=== PATIENT | male | born 2000 | race Caucasian/White ===

== ENCOUNTER 2024-01-03 20:07 | Emergency (ER) | payer OTHER ==
[~2024-01-03] VITALS: Ht 177.8 cm; Wt 90.0 kg
[2024-01-03 20:29] VITALS: O2SAT 99
[2024-01-03] MEDS: HYDROCODONE/ACETAMINOPHEN 5/325MG TABLET PO ONE (21:54)
[2024-01-03] MEDS ORDERED: NAPR-1176 MT (22:00)
[2024-01-03 22:12] VITALS: BP 112/77; PULSE 88; RESP 16; TEMP 98.5
== END 2024-01-03 22:13 | disposition home or self-care (01) ==
LOC: ER 20:07
DX: S06.0X0A Concussion without loss of consciousness, initial encounter (principal); S00.83XA Contusion of other part of head, initial encounter; W18.39XA Other fall on same level, initial encounter; Y93.89 Activity, other specified; Y92.89 Other specified places as the place of occurrence of the external cause; Y99.8 Other external cause status
CPT/HCPCS: 73130; 99284

== ENCOUNTER 2024-05-08 09:10 | Emergency (ER) | payer OTHER ==
[~2024-05-08] VITALS: Ht 180.3 cm; Wt 80.0 kg
[~2024-05-08 09:10] MED LIST: NAPR-1176 MT
[2024-05-08 09:19] VITALS: O2SAT 98
[2024-05-08] MEDS: ACETAMINOPHEN 325MG TABLET PO NR (10:52)
[2024-05-08 13:18] VITALS: BP 128/73; PULSE 99; RESP 20; TEMP 97.9
== END 2024-05-08 13:28 | disposition home or self-care (01) ==
LOC: ER 09:25
DX: M25.572 Pain in left ankle and joints of left foot (principal); M25.562 Pain in left knee; V26.49XA Other motorcycle driver injured in collision with other nonmotor vehicle in traffic accident, initial encounter; Y93.89 Activity, other specified; Y92.89 Other specified places as the place of occurrence of the external cause; Y99.8 Other external cause status
CPT/HCPCS: 73560; 73610; 99284; Z7610

== ENCOUNTER 2024-09-25 15:21 | Emergency (ER) | payer OTHER ==
[~2024-09-25] VITALS: Ht 177.8 cm; Wt 91.0 kg
[2024-09-25 15:23] VITALS: PULSE 89; RESP 18; O2SAT 99
[2024-09-25 15:26] VITALS: BP 145/77; TEMP 98.6; O2SAT 100
== END 2024-09-25 20:25 | disposition left against medical advice (07) ==
LOC: ER 15:21
DX: Z00.00 Encounter for general adult medical examination without abnormal findings (principal); Z53.21 Procedure and treatment not carried out due to patient leaving prior to being seen by health care provider